=== PATIENT | female | born 1995 | race Caucasian/White ===

== ENCOUNTER 2020-04-26 12:00 | Outpatient (RCR) | payer BC, SELFPAY ==
--- NOTE | 2020-04-18 16:06 | HO.OPPROGNO ---
Subjective Subjective Date of Service: 03/24/20 Reason For Visit: depression Interim History: Yesi reports she has made medication adjustments on her own. 1. Vraylar decreased to 3 mg from 6 mg 2. Lamictal 50 mg continues 3. Lorazepam 1 mg bid prn continues 4. Wellbutrin XL 150 mg continues 5. Clonidine continues as prn. Reports doing well, productive, organized, focused at work. Using cannibis edibles at night for sleep prn along with Melatonin. Reports a breakthrough ~ 1 month ago-increased awareness of sx, prompted research and a decision to decrease psychotherapy to every 2 weeks. Medication Compliance: Intermittent (changes by pt as noted above) Side effects from medications: No Attending Groups: No (NA) Review of Systems Review of Systems Yes all other systems are reviewed and are negative Psychiatric: Reports no additional psychiatric complaints Mental Status Exam Mental Status Exam Patient Orientation: Person, Place, Time and Situation Level of Consciousness: Awake and Alert Patient Behavior: Appropriate Mood Description: Calm Affect Description: Calm Patient Cognition Impaired: No Ability to Follow Directions: Excellent Speech Pattern: Clear, Appropriate and Spontaneous Speech Memory Description: Intact Hallucinations: None Delusions: Not Present Thought Process: Intact Thought Content: positive for Intact Judgement: Good Discharge Plan Discharge Attending provider: Radha Pérez Additional Instructions: 03/24/20: Pt has made changes as noted above 03/25/20: Urgent call from pt-political argument with a man on Twitter where pt is in crisis-increased Vraylar to 4.5 mg daily-will use a prn of Lorazepam as well. Pt is with friends/family-able to contract for safety. Medications: New Vraylar 1.5 mg capsule 1.5 mg PO DAILY Qty: 30 RF: 1 Vraylar 3 mg capsule 3 mg PO DAILY Qty: 30 RF: 1 bupropion HCl [Wellbutrin XL] 150 mg tablet extended release 24 hr 150 mg PO QAM Qty: 30 RF: 1 lorazepam 0.5 mg tablet 0.5 mg PO BID PRN (Reason: anxiety) Qty: 10 RF: 0 Assessment & Plan Patient educated on: diagnosis, medication risk/benefits and therapeutic strategies Informed Consent: understands and further education needed Reason for contiued therapy Substantial Risk for: rapid decompensation Greater than 50% of the session was spent on counseling and/or coordination of care
--- NOTE | 2020-04-26 14:51 | P.PNPSO_ITS ---
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 Reports sx increase mid-March with low mood, anxiety, irritability, panic sx-specifically focused on election and COVID. She has been attempting skill work with distraction, meditation, however, at times feels caught in a spiral of sx. Reports serious/severe sx, bi- monthly . By hx pt has tapered Wellbutrin, decreased Vraylar to 3 mg daily, tapered lamictal to 25 mg as I felt flat on 50 mg. Discussed titration of Vraylar, Lamictal, stopping Lorazepam and trialing low dose Klonopin, while keeping Hydroxyzine and Trazodone as prn options. Medication Compliance: Intermittent Side effects from medications: Yes (as noted above) Attending Groups: No (NA) Review of Systems Review of Systems Yes all other systems are reviewed and are negative Psychiatric: Reports abnormal sleep pattern, Reports anxiety, Reports depression, Reports hopelessness, Reports panic attacks and Reports other (apprehension, fear, worry about COVID-19.) Mental Status Exam Mental Status Exam Patient Orientation: Person, Place, Time and Situation Level of Consciousness: Awake and Alert Patient Behavior: Appropriate, Talkative, Cooperative, Anxious and Fearful (COVID) Mood Description: Anxious and Apprehensive Affect Description: Constricted Patient Cognition Impaired: No Ability to Follow Directions: Excellent Speech Pattern: Clear, Appropriate and Spontaneous Speech Memory Description: Intact Hallucinations: None Delusions: Not Present Thought Process: Intact and Distracted (at times with symptoms) Thought Content: positive for Intact, positive for Arthur and positive for Circumstantial Depressive Symptoms: Increased Anxiety, Difficulty Sleeping, Hopelessness, Unhappiness and Difficulty Concentrating Judgement: Fair Discharge Plan Discharge Attending provider: Radha Pérez Additional Instructions: 03/24/20: Pt has made changes as noted above 03/25/20: Urgent call from pt-political argument with a man on Twitter where pt is in crisis-increased Vraylar to 4.5 mg daily-will use a prn of Lorazepam as well. Pt is with friends/family-able to contract for safety. 04/26/20: Increase Vraylar from 3 mg daily to 4.5 mg daily Increase Lamictal from 25 mg daily to 50 mg daily Continue hydroxyzine, trazodone Discontinue Lorazepam Klonopin 0.5 mg HS Above changes to attempt to address mood, insomnia, anxiety Medications: New lamotrigine [Lamictal] 25 mg tablet 50 mg PO DAILY 30 Days Qty: 60 RF: 0 hydroxyzine pamoate 25 mg capsule 25 mg PO BID PRN (Reason: anxiety) Qty: 60 RF: 0 trazodone 50 mg tablet 50 mg PO BEDTIME PRN (Reason: insomnia) Qty: 30 RF: 0 clonazepam [Klonopin] 0.5 mg tablet 0.5 mg PO BEDTIME Qty: 14 RF: 0 Continued Vraylar 1.5 mg capsule 1.5 mg PO DAILY Qty: 30 RF: 1 Vraylar 3 mg capsule 3 mg PO DAILY Qty: 30 RF: 1 Assessment & Plan Patient educated on: medication risk/benefits and therapeutic strategies Informed Consent: further education needed Reason for contiued therapy Substantial Risk for: rapid decompensation Greater than 50% of the session was spent on counseling and/or coordination of care
--- NOTE | 2020-08-15 15:41 | P.EN_ITS ---
Event Note Date of Service: 08/15/20 Event Note: Call from pt to out pt services x 2 requesting telegraphic typewriter operator chief contact her regarding refills. Call to pt who reports she has a therapy appointment today with Sonia Sheets [facility] and is having some marital issues which are having effect upon her mood, sleep and appetite. Discussed clinic closure on August 08. Pt states she has OP med appt in September. Encouraged pt to use [facility] if needed, primary care team or ask if [facility] can accomodate an OP appt earlier than scheduled. Pt will talk with Sonia this afternoon. She denies SI, HI.
--- NOTE | 2020-08-15 15:41 | PM.EVENT ---
Event Note Date of Service: 08/15/20 Event Note: Call from pt to out pt services x 2 requesting technical writer contact her regarding refills. Call to pt who reports she has a therapy appointment today with Sonia Sheets [facility] and is having some marital issues which are having effect upon her mood, sleep and appetite. Discussed clinic closure on August 08. Pt states she has OP med appt in September. Encouraged pt to use [facility] if needed, primary care team or ask if [facility] can accomodate an OP appt earlier than scheduled. Pt will talk with Sonia this afternoon. She denies SI, HI.
== END 2020-06-09 23:55 | disposition home or self-care (01) ==
LOC: HO.PAOS 12:00
PROVIDERS: Visit Provider Clinical Nurse Specialist Psychiatric/Mental Health, Adult
DX: F32.9 Major depressive disorder, single episode, unspecified (principal)
CPT/HCPCS: 99213; 99214

== ENCOUNTER 2020-05-16 16:00 | Outpatient (RCR) | payer BC, SELFPAY | END 2020-05-19 23:55 | disposition home or self-care (01) | LOC: HO.PAOS 16:00 | PROVIDERS: Visit Provider Counselor Mental Health | DX: F31.12 Bipolar disorder, current episode manic without psychotic features, moderate (principal) | CPT/HCPCS: 90834 ==

== ENCOUNTER 2021-01-04 13:31 | Outpatient (REF) | payer BC, SELFPAY ==
[2021-01-05 05:22] LABS: CT PCR NOT DETECTED (Not Detect.); NG PCR NOT DETECTED (Not Detect.)
== END 2021-01-04 13:32 | disposition home or self-care (01) ==
LOC: HO.LAB 13:31
PROVIDERS: Visit Provider Advanced Practice Midwife
DX: Z01.419 Encounter for gynecological examination (general) (routine) without abnormal findings (principal); Z11.3 Encounter for screening for infections with a predominantly sexual mode of transmission; Z20.2 Contact with and (suspected) exposure to infections with a predominantly sexual mode of transmission
CPT/HCPCS: 87491; 87591; 88142